=== PATIENT | male | born 1980 | race Caucasian/White ===

== ENCOUNTER 2024-12-28 17:45 | Emergency (ER) | payer OTHER ==
[~2024-12-28] VITALS: Ht 167.6 cm; Wt 68.0 kg
[2024-12-28 19:59] LABS: BASOPHILS 0.3 % (0-2); EOSINOPHILS 0.1 % (0-6); HEMATOCRIT 40.1 % (35.0-50.0); HEMOGLOBIN 13.9 g/dL (12.0-18.0); MCH 29.3 (27-36); MCHC 34.5 g/dl (30-36); MCV 84.8 fl (81-99); MONOCYTES 7.9 % (0-12); NEUTROPHILS 85.7 % (39-80); PLATELET COUNT 314 K/uL (140-440); RBC 4.73 M/ul (4.3-5.7); RDW 13.5 (10.5-15.0)
[2024-12-28 20:11] LABS: ALBUMIN 2.6 g/dL (3.4-5.0); ALBUMIN/GLOBULIN RATIO 0.54 (1.1-2.4); BILIRUBIN, TOTAL 0.5 mg/dL (0.2-1.0); BUN/CREATININE RATIO 18.57 (6.0-28.6); CALCIUM 9.1 mg/dL (8.5-10.1); CREATININE, SERUM 0.7 mg/dL (0.70-1.30); PROTEIN, TOTAL 7.4 g/dL (6.4-8.2)
[2024-12-28] MEDS ORDERED: DAPTOmycin 500 MG/10 ML VIAL IV ONE (20:30)
[2024-12-28] MEDS ORDERED: DOXYCYCLINE HYCLATE 100 MG HOME.PACK PO ONE (21:15)
[2024-12-28 21:45] VITALS: BP 135/75
[2024-12-28] MEDS ORDERED: IBUPROFEN 400 MG TAB PO ONE (22:00)
== END 2024-12-28 21:58 | disposition home or self-care (01) ==
LOC: ED 17:45
PROVIDERS: Emergency Medicine
DX: L03.115 Cellulitis of right lower limb (principal); I10 Essential (primary) hypertension; E78.5 Hyperlipidemia, unspecified; Z59.02 Unsheltered homelessness
CPT/HCPCS: 36415; 73590; 80053; 85025; 93971; 96374; 99284-25; A9270; J0878